=== PATIENT | female | born 1960 | race Caucasian/White ===

== ENCOUNTER 2016-07-03 14:28 | Emergency (ER) | payer OTHER ==
--- NOTE | 2016-07-03 16:51 | DIAGNOSTIC IMAGING REPORT ---
PROCEDURE: XR HIP 2VW W W/O AP PELVIS-RT INDICATION: TRAUMA/INJURY TECHNIQUE: AP view of the pelvis and hips with lateral view of the right hip. COMPARISON: Left hip films 12/27/[address] of the pelvis 12/29/2012 FINDINGS: Right HIP: Osseous structures and joint spaces are normal. PELVIS: Osseous pelvis is normal. Old left iliac wing post surgical changes from bone graft harvest. IMPRESSION: 1. Negative pelvis and right hip.
--- NOTE | 2016-07-03 16:56 | DIAGNOSTIC IMAGING REPORT ---
PROCEDURE: XR SHOULDER 2 OR MORE VW-RIGHT INDICATION: TRAUMA/INJURY TECHNIQUE: Three views. COMPARISON: None. FINDINGS: The humeral neck fracture has been repaired with a side plate and 10 screws. There is anatomic alignment. There is no dislocation. IMPRESSION: 1. Anatomic alignment status post right humeral neck fracture fixation
--- NOTE | 2016-07-03 17:02 | ED ORDER SUMMARY ---
..... Patient: MEDHAT MONTANA OrderSheet [facility] VisitID: [id number] [address] [place] [address] 56y, F Registration Date/Time: 07/03/2016 ORDER SHEET Weight: 49.8 kg (stated) Allergies: NKA GENERAL ORDERS: Shoulder 2V or more Right Urgent (15:28 07/03/2016 EKskye P.A.-C) (Ack 15:44 LTapper) Hip 2V Right w AP Pelvis Urgent (15:28 07/03/2016 EKskye P.A.-C) (Ack 15:44 LTapper) MEDICATION ORDERS: IV FLUIDS: ORDER SHEET NOTES: [Electronically signed by Nallely Desai R.N. (19:17 07/03/2016)] [Electronically signed by Silva Park PKaylaAKayla-C (19:22 07/03/2016)] [Electronically locked/signed by Nallely Desai R.N. (19:17 07/03/2016)]
--- NOTE | 2016-07-03 17:02 | ED NURSING NOTES ---
Clinical Report - Nurses [facility] [address] [place] [address] 07/03/2016 14:28 Patient: MEDHAT MONTANA TRIAGE Triage time 15:16. Acuity: LEVEL 5. Chief Complaint: FALL while walking, onto the ground and ice (GLF, slipped and fell on ice in driveway 06/30/16). 15:26 07/03/16. 15:07/03/16. SUGAR COMA SCORE: [place] Coma Scale: 15- eyes open spontaneously (4); best verbal response- oriented x 4 (5); best motor response- obeys commands (6). --15:26 Jane Sewell R.N. 15:16 07/03/16. BP: 114/78. HR: 16. RR: 16. O2 saturation: 99%. Temp: 98.3 F. Pain level now: 8/10. Additional comments: PT on RA. States 10 right shoulder. --15:26 Jane Sewell R.N. Weight: 49.8 kg stated. Height/Length: 63 inches Per Patient. BMI: 19.5. --15:22 Jane Sewell R.N. Medications Naproxen Oral 500 mg, as needed. --15:18 Jane Sewell R.N. Allergies NKA. --15:18 Jane Sewell R.N. History Arrived by private vehicle. Historian: patient. Accompanied by family. 15:26 07/03/16. This occurred (2 days ago). She has had extremity pain and back pain. ( Right side pain through shoulder, ribs and lower back). Treatment SIGHTSEEING GUIDE: (naproxen). PAST MEDICAL HX: Asthma. Tetanus status: up-to-date. SURGERY HX: ( R shoulder 04/30). SOCIAL HX: Light tobacco smoker- less than 1/2 a pack per day. Alcohol use. (denies). History of drug use. (denies). FALL RISK ASSESSMENT: Fall risk assessment completed. No fall risk identified. NUTRITIONAL RISK ASSESSMENT: The nutritional risk assessment revealed no deficiencies. LEARNING NEEDS ASSESSMENT: The learning needs assessment revealed no barriers. SKIN INTEGRITY ASSESSMENT: Skin integrity risk assessment completed. No skin integrity risk identified. --15: Jane Sewell R.N. Assessment 15:07/03/16. She states feels the same. --15: Jane Sewlel R.N. Interventions 15:07/03/16. 15:07/03/16. ID band on patient. --15: Jane Sewell R.N. PHYSICAL ASSESSMENT Patient gowned. GENERAL / NEURO / PSYCH: Alert. Oriented X 4. Appears in pain. She has had weakness ((R) Hip). CVS: Normal heart rate and rhythm. Pulses within normal limits. Capillary refill less than 2 seconds. GI / : Abdomen soft and nontender. EXTREMITIES: Neuro-vascular status intact to the extremity. SKIN: Skin is warm and dry. ( Bruise on the (R) Hip). --16:12 Adalid Flower R.N. NURSING PROGRESS NOTES Patient gowned. Patient identifiers checked. Call light placed in reach. Bed placed in lowest position. Brakes of bed on. Patient ready for evaluation- chart flagged and PA notified. --16:13 Adalid Flower R.N. Locked/Released at 07/03/2016 19:17 by Nallely Desai R.N.
--- NOTE | 2016-07-03 17:02 | ED NURSING NOTES ---
Clinical Report - Nurses [facility] [address] [place] [address] 07/03/2016 14:28 Patient: MEDHAT MONTANA TRIAGE Triage time 15:16. Acuity: LEVEL 5. Chief Complaint: FALL while walking, onto the ground and ice (GLF, slipped and fell on ice in driveway 06/30/16). 15:26 07/03/16. 15:07/03/16. SUGAR COMA SCORE: [place] Coma Scale: 15- eyes open spontaneously (4); best verbal response- oriented x 4 (5); best motor response- obeys commands (6). --15:26 Jane Sewell R.N. 15:16 07/03/16. BP: 114/78. HR: 16. RR: 16. O2 saturation: 99%. Temp: 98.3 F. Pain level now: 8/10. Additional comments: PT on RA. States 10 right shoulder. --15:26 Jane Sewell R.N. Weight: 49.8 kg stated. Height/Length: 63 inches Per Patient. BMI: 19.5. --15:22 Jane Sewell R.N. Medications Naproxen Oral 500 mg, as needed. --15:18 Jane Sewell R.N. Allergies NKA. --15:18 Jane Sewell R.N. History Arrived by private vehicle. Historian: patient. Accompanied by family. 15:26 07/03/16. This occurred (2 days ago). She has had extremity pain and back pain. ( Right side pain through shoulder, ribs and lower back). Treatment HVAC COMMERCIAL SALESPERSON: (naproxen). PAST MEDICAL HX: Asthma. Tetanus status: up-to-date. SURGERY HX: ( R shoulder 04/30). SOCIAL HX: Light tobacco smoker- less than 1/2 a pack per day. Alcohol use. (denies). History of drug use. (denies). FALL RISK ASSESSMENT: Fall risk assessment completed. No fall risk identified. NUTRITIONAL RISK ASSESSMENT: The nutritional risk assessment revealed no deficiencies. LEARNING NEEDS ASSESSMENT: The learning needs assessment revealed no barriers. SKIN INTEGRITY ASSESSMENT: Skin integrity risk assessment completed. No skin integrity risk identified. --15: Jane Sewell R.N. Assessment 15:07/03/16. She states feels the same. --15: Jane Sewell R.N. Interventions 15:07/03/16. 15:07/03/16. ID band on patient. --15: Jane Sewell R.N. PHYSICAL ASSESSMENT Patient gowned. GENERAL / NEURO / PSYCH: Alert. Oriented X 4. Appears in pain. She has had weakness ((R) Hip). CVS: Normal heart rate and rhythm. Pulses within normal limits. Capillary refill less than 2 seconds. GI / : Abdomen soft and nontender. EXTREMITIES: Neuro-vascular status intact to the extremity. SKIN: Skin is warm and dry. ( Bruise on the (R) Hip). --16:12 Adalid Flower R.N. NURSING PROGRESS NOTES Patient gowned. Patient identifiers checked. Call light placed in reach. Bed placed in lowest position. Brakes of bed on. Patient ready for evaluation- chart flagged and PA notified. --16:13 Adalid Flower R.N. Locked/Released at 07/03/2016 19:17 by Nallely Desai R.N.
--- NOTE | 2016-07-03 17:02 | ED ORDER SUMMARY ---
..... Patient: MEDHAT MONTANA OrderSheet [facility] VisitID: [id number] [address] [place] [address] 56y, F Registration Date/Time: 07/03/2016 ORDER SHEET Weight: 49.8 kg (stated) Allergies: NKA GENERAL ORDERS: Shoulder 2V or more Right Urgent (15:28 07/03/2016 EKskye P.A.-C) (Ack 15:44 LTapper) Hip 2V Right w AP Pelvis Urgent (15:28 07/03/2016 EKskye P.A.-C) (Ack 15:44 LTapper) MEDICATION ORDERS: IV FLUIDS: ORDER SHEET NOTES: [Electronically signed by Nallely Desai R.N. (19:17 07/03/2016)] [Electronically signed by Silva Park PKaylaAKayla-C (19:22 07/03/2016)] [Electronically locked/signed by Nallely Desai R.N. (19:17 07/03/2016)]
--- NOTE | 2016-07-03 17:02 | ED CLINICAL REPORT ---
Clinical Report - Physicians/Mid Levels [facility] [address] [place] [address] 07/03/2016 14:28 [id number] Time Seen: 16:01 Jul 03 2016. Arrived- By private vehicle. Historian- patient. HISTORY OF PRESENT ILLNESS Chief Complaint: FALL. Location of injuries- (r. shoulder/ r. hip). 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 Occurred at home. The patient complains of mild pain. No blow to the head, neck pain or loss of consciousness. (here in the ER, status was a fall, 2 days prior to arrival, felt to her right shoulder right hip. Patient denies any LOC. Slipped on ice, fell to the right side. Has had recent shoulder surgery, who in April, 2 weeks previously stopped wearing a sling to the area. Reports place a sling on the shoulder for comfort. Denies any paresthesias. Denies laceration or diy injury to her head or neck. Reports pain to her right hip, however has been ambulatory. Patient With history of left hip fracture, and was concerned as previously she ambulated on a broken hip.). REVIEW OF SYSTEMS No loss of vision, abdominal pain or laceration. All systems otherwise negative, except as recorded above. PAST HISTORY No history of diabetes mellitus. SOCIAL HISTORY Smoker- current status unknown. No alcohol use or drug use. ADDITIONAL NOTES The nursing notes have been reviewed. PHYSICAL EXAM Vital Signs: 07/03/2016 15:16 BP: 114/78. HR: 16. RR: 16. O2 saturation: 99%. Temp: 98.3 F. Pain level now: 8/10. Appearance: Alert. Head: Head non-tender. Eyes: Pupils equal, round and reactive to light. EOM intact. No ocular injury. Neck: Painless ROM. Non-tender. No vertebral tenderness. Posterior neck: No tenderness or swelling. CVS: Heart sounds normal. Pulses normal. Respiratory: Breath sounds normal. Chest nontender. Abdomen: No visible injury. Back: No tenderness. ROM normal. No tenderness or vertebral point tenderness. Skin: Skin intact. Skin warm. Extremities: Normal inspection. Right shoulder: mild tenderness located in the AC joint. Limited ROM (diminished flexion and external rotation). No swelling, ecchymosis or deformity. No joint effusion. Right elbow. No tenderness or laceration. Pelvis stable. Right hip: mild tenderness located in the anterior aspect of the hip. No abrasion, ecchymosis, puncture wound or foreign body. Neuro: Oriented X 3. LABS, X-RAYS, AND EKG Rt Shoulder X-ray: (IMPRESSION: 1. Anatomic alignment status post right humeral neck fracture fixation Electronically Final signed by:Yogi Barba MD 07/03/2016 4:59:41 PM). Rt Hip X-ray: (IMPRESSION: 1. Negative pelvis and right hip. Electronically Final signed by:Yogi Barba MD 07/03/2016 4:55:23 PM). PROGRESS AND PROCEDURES Course of Care: Patient here in the ER, ambulatory, with fair range of motion of the hip as well as right shoulder. No injury to the head or neck. Patient here in the ER. With a sling, which she may wear if she chooses. mechanical slip and fall on ice. Patient is stable. Symptoms better. Patient/family counseled. Disposition: Discharged. CLINICAL IMPRESSION Multiple contusions to the right shoulder and right hip. INSTRUCTIONS Apply ice. You may walk and bear weight as tolerated. OTC Medications: Take OTC medications according to label instructions. Available over the counter. Acetaminophen (available over the counter): take according to label instructions. Motrin (available over the counter): take according to label instructions. (Electronically signed by Silva Park P.A.-C 07/03/2016 19:22)
--- NOTE | 2016-07-03 17:02 | ED CLINICAL REPORT ---
Clinical Report - Physicians/Mid Levels [facility] [address] [place] [address] 07/03/2016 14:28 [id number] Time Seen: 16:01 Jul 03 2016. Arrived- By private vehicle. Historian- patient. HISTORY OF PRESENT ILLNESS Chief Complaint: FALL. Location of injuries- (r. shoulder/ r. hip). 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 Occurred at home. The patient complains of mild pain. No blow to the head, neck pain or loss of consciousness. (here in the ER, status was a fall, 2 days prior to arrival, felt to her right shoulder right hip. Patient denies any LOC. Slipped on ice, fell to the right side. Has had recent shoulder surgery, who in April, 2 weeks previously stopped wearing a sling to the area. Reports place a sling on the shoulder for comfort. Denies any paresthesias. Denies laceration or diy injury to her head or neck. Reports pain to her right hip, however has been ambulatory. Patient With history of left hip fracture, and was concerned as previously she ambulated on a broken hip.). REVIEW OF SYSTEMS No loss of vision, abdominal pain or laceration. All systems otherwise negative, except as recorded above. PAST HISTORY No history of diabetes mellitus. SOCIAL HISTORY Smoker- current status unknown. No alcohol use or drug use. ADDITIONAL NOTES The nursing notes have been reviewed. PHYSICAL EXAM Vital Signs: 07/03/2016 15:16 BP: 114/78. HR: 16. RR: 16. O2 saturation: 99%. Temp: 98.3 F. Pain level now: 8/10. Appearance: Alert. Head: Head non-tender. Eyes: Pupils equal, round and reactive to light. EOM intact. No ocular injury. Neck: Painless ROM. Non-tender. No vertebral tenderness. Posterior neck: No tenderness or swelling. CVS: Heart sounds normal. Pulses normal. Respiratory: Breath sounds normal. Chest nontender. Abdomen: No visible injury. Back: No tenderness. ROM normal. No tenderness or vertebral point tenderness. Skin: Skin intact. Skin warm. Extremities: Normal inspection. Right shoulder: mild tenderness located in the AC joint. Limited ROM (diminished flexion and external rotation). No swelling, ecchymosis or deformity. No joint effusion. Right elbow. No tenderness or laceration. Pelvis stable. Right hip: mild tenderness located in the anterior aspect of the hip. No abrasion, ecchymosis, puncture wound or foreign body. Neuro: Oriented X 3. LABS, X-RAYS, AND EKG Rt Shoulder X-ray: (IMPRESSION: 1. Anatomic alignment status post right humeral neck fracture fixation Electronically Final signed by:Yogi Barba MD 07/03/2016 4:59:41 PM). Rt Hip X-ray: (IMPRESSION: 1. Negative pelvis and right hip. Electronically Final signed by:Yogi Barba MD 07/03/2016 4:55:23 PM). PROGRESS AND PROCEDURES Course of Care: Patient here in the ER, ambulatory, with fair range of motion of the hip as well as right shoulder. No injury to the head or neck. Patient here in the ER. With a sling, which she may wear if she chooses. mechanical slip and fall on ice. Patient is stable. Symptoms better. Patient/family counseled. Disposition: Discharged. CLINICAL IMPRESSION Multiple contusions to the right shoulder and right hip. INSTRUCTIONS Apply ice. You may walk and bear weight as tolerated. OTC Medications: Take OTC medications according to label instructions. Available over the counter. Acetaminophen (available over the counter): take according to label instructions. Motrin (available over the counter): take according to label instructions. (Electronically signed by Silva Park P.A.-C 07/03/2016 19:22)
--- NOTE | 2016-07-03 19:22 | ED MED RECONCILIATION SUMMARY ---
Patient: MEDHAT MONTANA Medication Reconciliation Report [facility] VisitID: [id number] [address] [place] [address] 56y, F Registration Date/Time: 07/03/2016 Weight: 49.8 kg Height/Length: 63 in. BMI: 19.5 ALLERGIES: NKA The patient's Home Medications are listed below: THE FOLLOWING MEDICATIONS NEED TO BE RECONCILED: Naproxen Oral 500 mg The source(s) of the original Home Medication information: Not obtained. The following Medications were given to the patient in the Emergency Department: None. The following Medications were prescribed to the patient: Take OTC medications according to label instructions. Available over the counter. -- Silva Park, P.A.-C Acetaminophen (available over the counter): take according to label instructions. -- Silva Park, P.A.-C Motrin (available over the counter): take according to label instructions. -- Silva Park, P.A.-C
--- NOTE | 2016-07-03 19:22 | ED MAR SUMMARY ---
..... Medication Administration Record [facility] [address] [place], [place] [id number] Patient: MEDHAT MONTANA Visit ID: [id number] 56y, F Weight: 49.8 kg Height/Length: 63 in BMI: 19.5 ALLERGIES: NKA
--- NOTE | 2016-07-03 19:22 | ED DISCHARGE INSTRUCTIONS ---
Patient: MEDHAT MONTANA General Instructions [facility] VisitID: [id number] [place] [address] 56y, F Registration Date/Time: 07/03/2016 Multiple contusions to the right shoulder and right hip. INSTRUCTIONS Apply ice. You may walk and bear weight as tolerated. OTC Medications: Take OTC medications according to label instructions. Available over the counter. Acetaminophen (available over the counter): take according to label instructions. Motrin (available over the counter): take according to label instructions. ADDITIONAL INFORMATION Contusion:Upper Extremity You have a contusion of your upper extremity (arm, wrist, hand or fingers). This causes local pain, swelling and sometimes bruising. There are no broken bones. This injury takes a few days to a few weeks to heal. A sling may be provided for comfort and arm support. Home Care: 1) Keep your arm elevated to reduce pain and swelling. This is very important during the first 48 hours. 2) Apply an ice pack (ice cubes in a plastic bag, wrapped in a towel) over the injured area for 20 minutes every 1-2 hours the first day for pain relief. Continue this 3-4 times a day until the pain and swelling goes away. 3) You may use acetaminophen (Tylenol) or ibuprofen (Motrin, Advil) to control pain, unless another pain medicine was prescribed. [ NOTE : If you have chronic liver or kidney disease or ever had a stomach ulcer or GI bleeding, talk with your doctor before using these medicines.] 4) If a sling was provided, you may remove it to shower or bathe. Do not wear it for more than one week or it may cause joint stiffness. Follow Up with your doctor or this facility if you are not starting to improve within the next THREE days. [NOTE: If X-rays were taken, they will be reviewed by a radiologist. You will be notified of any new findings that may affect your care.] Get Prompt Medical Attention if any of the following occur: -- Pain or swelling increases -- Redness, warmth or drainage -- Hand or fingers becomes cold, blue, numb or tingly Contusion:Lower Extremity You have a CONTUSION of your LOWER extremity (leg, knee, ankle, foot, or toes). This causes local pain, swelling and sometimes bruising. There are no broken bones. This injury may take from a few days to a few weeks to heal. Home Care: 1) Keep your leg elevated to reduce pain and swelling. When sleeping, place a pillow under the injured leg. When sitting, support the injured leg so it is level with your waist. This is very important during the first 48 hours. 2) If CRUTCHES have been advised, do not bear full weight on the injured leg until you can do so without pain. You may return to sports when you are able to hop and run on the injured leg without pain. 3) Apply an ice pack (ice cubes in a plastic bag, wrapped in a towel) over the injured area for 20 minutes every 1-2 hours the first day for pain relief. Continue this 3-4 times a day until the pain and swelling goes away. 4) You may use acetaminophen (Tylenol) or ibuprofen (Motrin, Advil) to control pain, unless another pain medicine was prescribed. [ NOTE : If you have chronic liver or kidney disease or ever had a stomach ulcer or GI bleeding, talk with your doctor before using these medicines.] Follow Up with your doctor or this facility if you are not starting to improve within the next THREE days. [NOTE: If X-rays were taken, they will be reviewed by a radiologist. You will be notified of any new findings that may affect your care.] Get Prompt Medical Attention if any of the following occur: -- Pain or swelling increases -- Toes become cold, blue, numb or tingly -- Redness, warmth or drainage from the skin You have been given the following additional information: Contusion, Upper Extremity Contusion, Lower Extremity You may walk and bear weight as tolerated. (Electronically signed by Silva Park P.A.-C 07/03/2016 19:22)
--- NOTE | 2016-07-03 19:22 | ED MED RECONCILIATION SUMMARY ---
Patient: MEDHAT MONTANA Medication Reconciliation Report [facility] VisitID: [id number] [address] [place] [address] 56y, F Registration Date/Time: 07/03/2016 Weight: 49.8 kg Height/Length: 63 in. BMI: 19.5 ALLERGIES: NKA The patient's Home Medications are listed below: THE FOLLOWING MEDICATIONS NEED TO BE RECONCILED: Naproxen Oral 500 mg The source(s) of the original Home Medication information: Not obtained. The following Medications were given to the patient in the Emergency Department: None. The following Medications were prescribed to the patient: Take OTC medications according to label instructions. Available over the counter. -- Silva Park, P.A.-C Acetaminophen (available over the counter): take according to label instructions. -- Silva Park, P.A.-C Motrin (available over the counter): take according to label instructions. -- Silva Park, P.A.-C
--- NOTE | 2016-07-03 19:22 | ED MAR SUMMARY ---
..... Medication Administration Record [facility] [address] [place], [place] [id number] Patient: MEDHAT MONTANA Visit ID: [id number] 56y, F Weight: 49.8 kg Height/Length: 63 in BMI: 19.5 ALLERGIES: NKA
== END 2016-07-03 17:15 | disposition home or self-care (01) ==
LOC: ED SRH 14:28
DX: S40.011A Contusion of right shoulder, initial encounter (principal); S70.01XA Contusion of right hip, initial encounter; W00.0XXA Fall on same level due to ice and snow, initial encounter; Y93.9 Activity, unspecified; Y92.009 Unspecified place in unspecified non-institutional (private) residence as the place of occurrence of the external cause; Y99.9 Unspecified external cause status; F17.200 Nicotine dependence, unspecified, uncomplicated

== ENCOUNTER → 2016-12-10 | Outpatient (CLI) | payer OTHER ==
--- NOTE | 2016-12-10 11:57 | DIAGNOSTIC IMAGING REPORT ---
PROCEDURE: XR CERVICAL SPINE 2 OR 3 VIEW INDICATION: PRIOR C-SPINE SURGERY(2012) NECK DISCOMFORT WORSENING TECHNIQUE: Three views. COMPARISON: Comparison is made radiographs of the cervical spine on 02/20/2011. FINDINGS: Interim C4-5 and C5-6 anterior discectomy and fusion with ventral metal plate and interbody screws). Alignment is normal. There are moderate degenerate changes of the lower cervical facet joints with moderate disc space narrowing at the C6-7 level. Osseous structures and disc spaces are otherwise normal. No evidence of an acute process or fracture. IMPRESSION: 1. Interim C4-5 a C5-6 anterior discectomy and fusion with normal postoperative appearance. 2. Moderate degenerative changes. 3. Otherwise negative cervical spine.
== END ==
LOC: XR SRH 11:30
DX: M50.323 Other cervical disc degeneration at C6-C7 level (principal); Z98.1 Arthrodesis status